=== PATIENT | male | born 1995 | race American Indian/Alaskan Native ===

== ENCOUNTER 2018-12-28 03:23 | Emergency (ER) | payer MEDICAID, OTHER ==
[2018-12-28] MEDS ORDERED: Bacitracin Oint 1 GM U/D Packet TOP ONE (03:27)
[2018-12-28] MEDS ORDERED: LORazepam 2 MG/ML Syringe IVPUSH ONE (03:27)
[2018-12-28] MEDS ORDERED: Lidocaine 1% 30 ML SDV INJECT ONE (03:27)
[2018-12-28] MEDS ORDERED: Sodium Chloride 0.9% 1,000 ML IV ONE (03:27)
[2018-12-28] MEDS ORDERED: Sodium Chloride 0.9% 10 ML Syringe FLUSH PRN (03:29)
[2018-12-28 03:33] VITALS: BP 145/99
[2018-12-28] MEDS ORDERED: Midazolam 1 MG/ML 2 ML SDV ONE (03:49)
[2018-12-28] MEDS ORDERED: Midazolam 1 MG/ML 2 ML SDV IVPUSH ONE (03:49)
[2018-12-28] MEDS ORDERED: diphenhydrAMINE 50 MG/ML SDV IVPUSH ONE (03:57)
[2018-12-28] MEDS ORDERED: diphenhydrAMINE 50 MG/ML SDV ONE (03:57)
[2018-12-28 04:00] LABS: ANION GAP 14.7; CHLORIDE,CL 108 mmol/L (101-111); SODIUM,NA 146 mmol/L (135-145)
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
[2018-12-28] MEDS ORDERED: Haloperidol Lactate 5 MG/ML SDV IVPUSH ONE (04:43)
[2018-12-28] MEDS ORDERED: Haloperidol Lactate 5 MG/ML SDV IM ONE (04:47)
== END 2018-12-28 05:16 ==
LOC: DL.ED 03:23
DX: S01.81XA Laceration without foreign body of other part of head, initial encounter (principal); F10.129 Alcohol abuse with intoxication, unspecified; Z88.0 Allergy status to penicillin; X58.XXXA Exposure to other specified factors, initial encounter
CPT/HCPCS: 12011; 36415; 80053; 80320; 85025; 96361; 96372; 96374; 96375; 99284; J1200; J1630; J2001; J2060; J2250; J7030; 13131; G0480

== ENCOUNTER 2020-06-07 23:34 | Emergency (ER) | payer MEDICAID ==
[2020-06-07] MEDS ORDERED: Propofol 200 MG/20 ML SDV IV ONE (23:35)
[2020-06-07 23:55] VITALS: BP 136/79; PULSE 77
[2020-06-07] MEDS ORDERED: LORazepam 2 MG/ML SDV IVPUSH ONE (23:55)
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
[2020-06-08 02:29] LABS: ANION GAP 16.4 mEq/L (7-13); CHLORIDE,CL 102 mmol/L (98-107); SODIUM,NA 140 mmol/L (136-145)
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
[2020-06-08] MEDS ORDERED: Lidocaine 1% with EPINEPHrine 1:100,000 20 ML MDV INJECT ONE (02:30)
[2020-06-08] MEDS ORDERED: Lidocaine 1% 30 ML SDV INJECT ONE (02:30)
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
[2020-06-08] MEDS: Lactated Ringers 1,000 ML IV ONE ×2 (02:45→03:20)
[2020-06-08 03:43] LABS: AMPHETAMINES,URINE POSITIVE (NEGATIVE); BARBITURATES,URINE NEGATIVE (NEGATIVE); BENZODIAZEPINE,URINE NEGATIVE (NEGATIVE); MDMA (ECSTASY), URINE NEGATIVE (NEGATIVE); METHADONE,URINE NEGATIVE (NEGATIVE); METHAMPHETAMINES,URINE POSITIVE (NEGATIVE); OPIATES,URINE NEGATIVE (NEGATIVE); OXYCODONE,URINE NEGATIVE (NEGATIVE); PHENCYCLIDINE,URINE NEGATIVE (NEGATIVE); TCA,URINE NEGATIVE (NEGATIVE)
== END 2020-06-08 04:00 ==
LOC: DL.ED 23:34
DX: S01.512A Laceration without foreign body of oral cavity, initial encounter (principal); F10.120 Alcohol abuse with intoxication, uncomplicated; Y90.7 Blood alcohol level of 200-239 mg/100 ml; Z88.0 Allergy status to penicillin; Y04.0XXA Assault by unarmed brawl or fight, initial encounter
CPT/HCPCS: 12013; 36415; 70450; 70486; 72125; 80053; 80305; 80307; 85025; 96374; 99284; J2001; J2060; J7120; 01999; 99282; J2704

== ENCOUNTER 2020-06-12 19:28 | Emergency (ER) | payer MEDICAID ==
[2020-06-12 19:58] VITALS: BP 140/114; PULSE 143
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
[2020-06-12 21:05] LABS: ANION GAP 13.6 mEq/L (7-13); CHLORIDE,CL 101 mmol/L (98-107); SODIUM,NA 140 mmol/L (136-145)
[2020-06-12 21:07] LABS: METHAMPHETAMINES,URINE POSITIVE (NEGATIVE)
[2020-06-12 21:08] LABS: AMPHETAMINES,URINE NEGATIVE (NEGATIVE); BARBITURATES,URINE NEGATIVE (NEGATIVE); BENZODIAZEPINE,URINE NEGATIVE (NEGATIVE); MDMA (ECSTASY), URINE NEGATIVE (NEGATIVE); METHADONE,URINE NEGATIVE (NEGATIVE); OPIATES,URINE NEGATIVE (NEGATIVE); OXYCODONE,URINE NEGATIVE (NEGATIVE); PHENCYCLIDINE,URINE NEGATIVE (NEGATIVE); TCA,URINE NEGATIVE (NEGATIVE)
== END 2020-06-12 23:07 | disposition other institution (70) ==
LOC: DL.ED 19:28
DX: F12.10 Cannabis abuse, uncomplicated (principal); F15.10 Other stimulant abuse, uncomplicated; Z88.0 Allergy status to penicillin
CPT/HCPCS: 36415; 70450; 80053; 80305-QW; 80307; 81001; 85025; 99283; 99285-25

== ENCOUNTER 2021-04-25 09:30 | Emergency (ER) | payer MEDICAID | END 2021-04-25 09:48 | LOC: DL.ED 09:30 | DX: S61.412A Laceration without foreign body of left hand, initial encounter (principal); Z53.21 Procedure and treatment not carried out due to patient leaving prior to being seen by health care provider ==